=== PATIENT | female | born 1945 | race Caucasian/White ===

== ENCOUNTER → 2016-11-13 | Outpatient (CLI) | payer MEDICARE ==
[~2016-11-13] MED LIST: BENADRYL-DPS50 MG PO; CALCIUM 600 +1 EACH PO; COLACE-DPS100 MG PO; DELTASONE DPS20 MG PO; DULCOLAX-DPS BOW5 MG PO; DULERA 200 MCG/13 GM IH; DUONEB DPS3 ML IH; ELAVIL-DPS100 MG PO; GLUCOPHAGE-DPS500 MG PO; HYDROCODON-ACE1 EAC2 PO; KENALOG OINT 0.80 GM TP; KLONOPIN DPS1 MG PO; LEXAPRO DPS10 MG PO; MIRALAX DPS17 GM PO; NORVASC DPS10 MG PO; NOVOLOG100 UNIT/2 SQ; NYSTATIN CREAM15 GM TP; PREDNISONE; PROTONIX40 MG PO; RESTORIL DPS30 MG PO; SYNTHROID75 MCG PO; VENTOLIN HFA8 GM IH; VIBRAMYCIN-DPS100 M2 PO; ZOCOR DPS40 MG PO; [UNRECOGNIZED DRUG - OTHER] PO
== END | disposition home or self-care (01) ==
LOC: PTH.S 11:03
DX: C43.62 Malignant melanoma of left upper limb, including shoulder (principal); M47.894 Other spondylosis, thoracic region; I51.7 Cardiomegaly